=== PATIENT | male | born 1995 | race Caucasian/White ===

== ENCOUNTER → 2017-12-26 | Outpatient (REF) | payer OTHER ==
[2017-12-26 11:27] LABS: BASO # 0.1 10^3/uL (0.0-0.2); BASO % 0.8 % (0.0-1.0); EOS # 0.8 10^3/uL (0.0-0.50); EOS % 8.1 % (0.0-3.0); HEMOGLOBIN 16.8 g/dl (14.0-18.0); IMMATURE GRANULOCYTE % 0.3 % (0-3.0); LYMPH # 3.4 10^3/uL (1.5-6.5); LYMPH % 33.9 % (24.0-44.0); MEAN CORPUSCULAR HEMOGLOBIN 29.6 pg (27.0-33.0); MEAN CORPUSCULAR HGB CONC 33.6 g/dl (32.0-36.5); MONO # 0.9 10^3/uL (0.0-0.8); MONO % 8.5 % (0.0-5.0); NEUTROPHILS # 4.9 10^3/uL (1.8-7.7); NEUTROPHILS % 48.4 % (36.0-66.0); PLATELET COUNT, AUTOMATED 369 10^3/uL (150-450); RED BLOOD COUNT 5.68 10^6/uL (4.30-6.10); RED CELL DISTRIBUTION WIDTH 12.4 % (11.5-14.5)
[2017-12-26 11:46] LABS: ESTIMATED AVERAGE GLUCOSE 105 MG/DL (60-110); HEMOGLOBIN A1c 5.3 %
[2017-12-26 11:48] LABS: ALBUMIN 3.5 GM/DL (3.2-5.2); ALBUMIN/GLOBULIN RATIO 0.88 (1.00-1.93); ALKALINE PHOSPHATASE 80 U/L (45-117); ALT/SGPT 47 U/L (12-78); ANION GAP 7 MEQ/L (8-16); AST/SGOT 19 U/L (7-37); BILIRUBIN,TOTAL 0.5 MG/DL (0.2-1.0); BLOOD UREA NITROGEN 10 MG/DL (7-18); CARBON DIOXIDE LEVEL 28 MEQ/L (21-32); CHLORIDE LEVEL 106 MEQ/L (98-107); CHOLESTEROL LEVEL 163 MG/DL (<200); CREATININE FOR GFR 0.85 MG/DL (0.70-1.30); GLUCOSE, FASTING 81 MG/DL (70-100); HDL CHOLESTEROL 42 MG/DL (>40); NON-HDL-C 121 MG/DL; POTASSIUM SERUM 4.5 MEQ/L (3.5-5.1); SODIUM LEVEL 141 MEQ/L (136-145); TOTAL PROTEIN 7.5 GM/DL (6.4-8.2); TRIGLYCERIDES LEVEL 135 MG/DL (<150)
== END ==
LOC: M SFHCCLAY 08:25
DX: F90.0 Attention-deficit hyperactivity disorder, predominantly inattentive type (principal); E03.9 Hypothyroidism, unspecified; F41.8 Other specified anxiety disorders; L70.0 Acne vulgaris; Z13.1 Encounter for screening for diabetes mellitus; Z79.899 Other long term (current) drug therapy
CPT/HCPCS: 84443

== ENCOUNTER → 2017-12-27 | Outpatient (REF) | payer OTHER | LOC: M SFHCCLAY 15:34 | DX: J02.9 Acute pharyngitis, unspecified (principal) ==

== ENCOUNTER → 2018-08-28 | Outpatient (REF) | payer OTHER | LOC: M SFHCCLAY 10:35 | DX: F32.2 Major depressive disorder, single episode, severe without psychotic features (principal); E03.9 Hypothyroidism, unspecified; E66.01 Morbid (severe) obesity due to excess calories; F50.81 Binge eating disorder; F51.04 Psychophysiologic insomnia; R09.81 Nasal congestion ==

== ENCOUNTER → 2018-11-08 | Outpatient (REF) | payer OTHER ==
[2018-11-09 12:18] LABS: BASO # 0.1 10^3/uL (0.0-0.2); BASO % 0.8 % (0.0-1.0); EOS # 0.3 10^3/uL (0.0-0.50); EOS % 3.9 % (0.0-3.0); HEMATOCRIT 49.8 % (42.0-52.0); HEMOGLOBIN 16.5 g/dl (13.5-17.5); LYMPH # 2.6 10^3/uL (1.5-6.5); LYMPH % 29.7 % (24.0-44.0); MEAN CORPUSCULAR HEMOGLOBIN 29.5 pg (27.0-33.0); MEAN CORPUSCULAR HGB CONC 33.1 g/dl (32.0-36.5); MEAN CORPUSCULAR VOLUME 88.9 fl (80.0-96.0); MONO # 0.8 10^3/uL (0.0-0.8); MONO % 9.4 % (0.0-5.0); NEUTROPHILS # 4.9 10^3/uL (1.8-7.7); NEUTROPHILS % 55.9 % (36.0-66.0); PLATELET COUNT, AUTOMATED 360 10^3/uL (150-450); WHITE BLOOD COUNT 8.7 10^3/uL (4.0-10.0)
[2018-11-09 12:34] LABS: ALBUMIN 3.5 GM/DL (3.2-5.2); ALT/SGPT 43 U/L (12-78); BILIRUBIN,TOTAL 0.7 MG/DL (0.2-1.0); BLOOD UREA NITROGEN 11 MG/DL (7-18); CALCIUM LEVEL 9.1 MG/DL (8.5-10.1); CARBON DIOXIDE LEVEL 29 MEQ/L (21-32); CHLORIDE LEVEL 106 MEQ/L (98-107); CHOLESTEROL LEVEL 143 MG/DL (<200); CHOLESTEROL RISK RATIO 3.763 (<5); CREATININE FOR GFR 0.85 MG/DL (0.70-1.30); GLOMERULAR FILTRATION RATE > 60.0 (>60); GLUCOSE, FASTING 88 MG/DL (70-100); HDL CHOLESTEROL 38 MG/DL (>40); LDL CHOLESTEROL 83 MG/DL (<100); NON-HDL-C 105 MG/DL; POTASSIUM SERUM 4.1 MEQ/L (3.5-5.1); SODIUM LEVEL 141 MEQ/L (136-145); TOTAL PROTEIN 7.4 GM/DL (6.4-8.2); TRIGLYCERIDES LEVEL 108 MG/DL (<150)
[2018-11-09 12:59] LABS: HEMOGLOBIN A1c 5.2 %
== END ==
LOC: M SFHCCLAY 14:17
PROVIDERS: ATTEND Nurse Practitioner Family
DX: F32.2 Major depressive disorder, single episode, severe without psychotic features (principal); E03.9 Hypothyroidism, unspecified; E66.01 Morbid (severe) obesity due to excess calories; Z68.42 Body mass index [BMI] 45.0-49.9, adult; Z13.1 Encounter for screening for diabetes mellitus; L70.0 Acne vulgaris

== ENCOUNTER → 2019-09-13 | Outpatient (REF) | payer OTHER ==
[2019-09-13 17:23] LABS: ALBUMIN 3.3 GM/DL (3.2-5.2); ALT/SGPT 42 U/L (12-78); BILIRUBIN,TOTAL 0.6 MG/DL (0.2-1.0); BLOOD UREA NITROGEN 11 MG/DL (7-18); CALCIUM LEVEL 9.1 MG/DL (8.5-10.1); CARBON DIOXIDE LEVEL 29 MEQ/L (21-32); CHLORIDE LEVEL 105 MEQ/L (98-107); CHOLESTEROL LEVEL 149 MG/DL (<200); CHOLESTEROL RISK RATIO 3.465 (<5); CREATININE FOR GFR 0.79 MG/DL (0.70-1.30); FREE T4 1.01 NG/DL (0.76-1.46); GLOMERULAR FILTRATION RATE > 60.0 (>60); GLUCOSE, FASTING 80 MG/DL (70-100); HDL CHOLESTEROL 43 MG/DL (>40); LDL CHOLESTEROL 86 MG/DL (<100); NON-HDL-C 106 MG/DL; POTASSIUM SERUM 4.4 MEQ/L (3.5-5.1); SODIUM LEVEL 139 MEQ/L (136-145); TOTAL PROTEIN 7.1 GM/DL (6.4-8.2); TRIGLYCERIDES LEVEL 100 MG/DL (<150)
[2019-09-13 17:46] LABS: BASO # 0.1 10^3/uL (0.0-0.2); BASO % 0.8 % (0.0-1.0); EOS # 0.4 10^3/uL (0.0-0.5); EOS % 5.6 % (0.0-3.0); HEMATOCRIT 50.2 % (42.0-52.0); HEMOGLOBIN 15.9 g/dl (13.5-17.5); LYMPH # 2.7 10^3/uL (1.5-5.0); LYMPH % 33.8 % (24.0-44.0); MEAN CORPUSCULAR HEMOGLOBIN 29.3 pg (27.0-33.0); MEAN CORPUSCULAR HGB CONC 31.7 g/dl (32.0-36.5); MEAN CORPUSCULAR VOLUME 92.6 fl (80.0-96.0); MONO # 0.8 10^3/uL (0.0-0.8); MONO % 10.6 % (0.0-5.0); NEUTROPHILS # 3.9 10^3/uL (1.5-8.5); NEUTROPHILS % 48.8 % (36.0-66.0); PLATELET COUNT, AUTOMATED 360 10^3/uL (150-450); RED BLOOD COUNT 5.42 10^6/uL (4.30-6.10); WHITE BLOOD COUNT 7.9 10^3/uL (4.0-10.0)
== END ==
LOC: M SFHCCLAY 11:17
PROVIDERS: ATTEND Nurse Practitioner Family
DX: F32.2 Major depressive disorder, single episode, severe without psychotic features (principal); E03.9 Hypothyroidism, unspecified; E66.01 Morbid (severe) obesity due to excess calories

== ENCOUNTER 2019-11-12 11:33 | Emergency (ER) | payer BC, OTHER ==
[~2019-11-12] VITALS: Ht 175.3 cm; Wt 130.4 kg
[2019-11-12] MEDS ORDERED: CONC36TA4 PO (11:56)
[2019-11-12] MEDS ORDERED: AMIT10TA PO (11:56)
--- NOTE | 2019-11-12 12:59 | REP ---
INDICATION: Headache. Hallucinations. PROCEDURE: CT head without contrast COMPARISON STUDIES: No priors. FINDINGS: No acute bleed or acute large vessel territorial infarct. Ventricles, cisterns and sulci within normal limits. No mass effect or midline shift. No abnormal fluid collections. Paranasal sinuses and mastoid air cells are clear. CONCLUSION: No acute findings. Normal examination. Electronically Signed by Marcelo Ocasio MD 11/12/2019 12:50 P
[2019-11-12 13:22] LABS: HEMATOCRIT 50.6 % (42.0-52.0); HEMOGLOBIN 16.2 g/dl (13.5-17.5); MEAN CORPUSCULAR VOLUME 90.7 fl (80.0-96.0); PLATELET COUNT, AUTOMATED 338 10^3/uL (150-450); RED BLOOD COUNT 5.58 10^6/uL (4.30-6.10); WHITE BLOOD COUNT 9.5 10^3/uL (4.0-10.0)
[2019-11-12 13:53] LABS: ACETAMINOPHEN LEVEL < 2.0 UG/ML (10.0-30.0); ALBUMIN 3.4 GM/DL (3.2-5.2); ALT/SGPT 37 U/L (12-78); AMPHETAMINES LEVEL URINE NEGATIVE (NEGATIVE); BARBITURATES URINE NEGATIVE (NEGATIVE); BENZODIAZEPINES URINE NEGATIVE (NEGATIVE); BILIRUBIN,DIRECT 0.1 MG/DL (0.0-0.2); BILIRUBIN,TOTAL 0.3 MG/DL (0.2-1.0); BLOOD UREA NITROGEN 12 MG/DL (7-18); CALCIUM LEVEL 8.8 MG/DL (8.5-10.1); CANNABINOIDS URINE POSITIVE (NEGATIVE); CARBON DIOXIDE LEVEL 26 MEQ/L (21-32); CHLORIDE LEVEL 108 MEQ/L (98-107); COCAINE METABOLITE URINE NEGATIVE (NEGATIVE); CREATININE FOR GFR 0.83 MG/DL (0.70-1.30); ETHYL ALCOHOL (ETHANOL) < 0.003 % (0.000-0.010); GLOMERULAR FILTRATION RATE > 60.0 (>60); GLUCOSE, FASTING 94 MG/DL (70-100); METHADONE URINE NEGATIVE (NEGATIVE); OPIATES URINE NEGATIVE (NEGATIVE); PHENCYCLIDINE URINE NEGATIVE (NEGATIVE); POTASSIUM SERUM 4.3 MEQ/L (3.5-5.1); SALICYLATE LEVEL < 1.7 MG/DL (5.0-30.0); SODIUM LEVEL 140 MEQ/L (136-145); TOTAL PROTEIN 7.3 GM/DL (6.4-8.2)
[2019-11-12] MEDS ORDERED: ACETAMINOPHEN TAB 650MG DOSE (2X325MG) PO ONE (14:00)
[2019-11-12] MEDS ORDERED: diphenhydrAMINE 25 MG CAP As Ordered ONE (23:50)
[2019-11-13] MEDS ORDERED: diphenhydrAMINE 50 MG CAP PO ONE
[2019-11-13 09:31] VITALS: BP 147/84
--- NOTE | 2019-11-14 09:55 | ECGEPIP ---
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
== END 2019-11-13 09:34 ==
LOC: M ED 11:33
DX: F23 Brief psychotic disorder (principal); R00.0 Tachycardia, unspecified; R94.31 Abnormal electrocardiogram [ECG] [EKG]; F90.9 Attention-deficit hyperactivity disorder, unspecified type; E66.9 Obesity, unspecified; E07.9 Disorder of thyroid, unspecified; L70.9 Acne, unspecified; K31.1 Adult hypertrophic pyloric stenosis; F12.10 Cannabis abuse, uncomplicated; Z79.899 Other long term (current) drug therapy
CPT/HCPCS: 70450; 80048; 80076; 80307; 84443; 85027; 93005; 99285; G0480

== ENCOUNTER → 2021-05-25 | Outpatient (REF) | payer OTHER ==
[~2021-05-25] MED LIST: AMIT10TA7 PO; CONC36TA4 PO
[2021-05-25 16:25] LABS: BASO # 0.1 10^3/uL (0.0-0.2); BASO % 0.8 % (0.0-1.0); EOS # 0.7 10^3/uL (0.0-0.5); EOS % 7.6 % (0.0-3.0); HEMATOCRIT 51.3 % (42.0-52.0); HEMOGLOBIN 16.5 g/dl (13.5-17.5); LYMPH # 2.4 10^3/uL (1.5-5.0); LYMPH % 25.7 % (24.0-44.0); MEAN CORPUSCULAR HEMOGLOBIN 29.7 pg (27.0-33.0); MEAN CORPUSCULAR HGB CONC 32.2 g/dl (32.0-36.5); MEAN CORPUSCULAR VOLUME 92.4 fl (80.0-96.0); MONO # 0.6 10^3/uL (0.0-0.8); MONO % 6.7 % (2.0-8.0); NEUTROPHILS # 5.4 10^3/uL (1.5-8.5); NEUTROPHILS % 58.7 % (36.0-66.0); PLATELET COUNT, AUTOMATED 378 10^3/uL (150-450); RED BLOOD COUNT 5.55 10^6/uL (4.30-6.10); WHITE BLOOD COUNT 9.2 10^3/uL (4.0-10.0)
[2021-05-25 16:52] LABS: ALBUMIN 3.5 GM/DL (3.2-5.2); ALT/SGPT 41 U/L (12-78); BILIRUBIN,TOTAL 0.5 MG/DL (0.2-1.0); BLOOD UREA NITROGEN 11 MG/DL (7-18); CALCIUM LEVEL 9.6 MG/DL (8.5-10.1); CARBON DIOXIDE LEVEL 32 MEQ/L (21-32); CHLORIDE LEVEL 106 MEQ/L (98-107); CHOLESTEROL LEVEL 199 MG/DL (<200); CREATININE FOR GFR 0.85 MG/DL (0.70-1.30); GLOMERULAR FILTRATION RATE > 60.0 (>60); GLUCOSE, FASTING 94 MG/DL (70-100); HDL CHOLESTEROL 50 MG/DL (>40); LDL CHOLESTEROL 103 MG/DL (<100); NON-HDL-C 149 MG/DL; POTASSIUM SERUM 4.9 MEQ/L (3.5-5.1); SODIUM LEVEL 141 MEQ/L (136-145); TOTAL PROTEIN 7.5 GM/DL (6.4-8.2); TRIGLYCERIDES LEVEL 230 MG/DL (<150)
== END ==
LOC: M SFHCCLAY 11:44
PROVIDERS: ATTEND Nurse Practitioner Family
DX: E03.9 Hypothyroidism, unspecified (principal); F90.0 Attention-deficit hyperactivity disorder, predominantly inattentive type; F32.2 Major depressive disorder, single episode, severe without psychotic features; F51.04 Psychophysiologic insomnia; E66.01 Morbid (severe) obesity due to excess calories; Z68.42 Body mass index [BMI] 45.0-49.9, adult
CPT/HCPCS: 80053; 80061; 84439; 84443; 85025; G0480

== ENCOUNTER 2022-01-01 23:35 | Inpatient (IN) | payer BC, OTHER ==
[~2022-01-01] VITALS: Ht 175.3 cm; Wt 136.4 kg
[2022-01-02] MEDS ORDERED: LEVO25TA5 PO (00:12)
[2022-01-02 00:45] LABS: HEMATOCRIT 48.6 % (42.0-52.0); HEMOGLOBIN 16.1 g/dl (13.5-17.5); MEAN CORPUSCULAR HEMOGLOBIN 29.3 pg (27.0-33.0); MEAN CORPUSCULAR HGB CONC 33.1 g/dl (32.0-36.5); MEAN CORPUSCULAR VOLUME 88.4 fl (80.0-96.0); PLATELET COUNT, AUTOMATED 461 10^3/uL (150-450); WHITE BLOOD COUNT 10.8 10^3/uL (4.0-10.0)
[2022-01-02 01:22] LABS: ACETAMINOPHEN LEVEL < 2.0 UG/ML (10.0-30.0); ALBUMIN 3.3 GM/DL (3.2-5.2); ALT/SGPT 47 U/L (12-78); BILIRUBIN,DIRECT < 0.1 MG/DL (0.0-0.2); BILIRUBIN,TOTAL 0.2 MG/DL (0.2-1.0); BLOOD UREA NITROGEN 10 MG/DL (7-18); CALCIUM LEVEL 8.3 MG/DL (8.5-10.1); CARBON DIOXIDE LEVEL 23 MEQ/L (21-32); CHLORIDE LEVEL 109 MEQ/L (98-107); CREATININE FOR GFR 0.82 MG/DL (0.70-1.30); GLOMERULAR FILTRATION RATE > 60.0 (>60); GLUCOSE, FASTING 92 MG/DL (70-100); POTASSIUM SERUM 4.1 MEQ/L (3.5-5.1); RSV AMPLIFICATION NEGATIVE (NEGATIVE); SALICYLATE LEVEL < 1.7 MG/DL (5.0-30.0); SODIUM LEVEL 141 MEQ/L (136-145); TOTAL PROTEIN 7.2 GM/DL (6.4-8.2)
[2022-01-02 01:23] LABS: AMPHETAMINES LEVEL URINE NEGATIVE (NEGATIVE); BARBITURATES URINE NEGATIVE (NEGATIVE); BENZODIAZEPINES URINE NEGATIVE (NEGATIVE); CANNABINOIDS URINE POSITIVE (NEGATIVE); COCAINE METABOLITE URINE NEGATIVE (NEGATIVE); METHADONE URINE NEGATIVE (NEGATIVE); OPIATES URINE NEGATIVE (NEGATIVE); PHENCYCLIDINE URINE NEGATIVE (NEGATIVE)
[2022-01-02] MEDS ORDERED: LEVO50TA5 PO (04:17)
[2022-01-02] MEDS ORDERED: HOME MED LIST COMPLETE! XX SCH (04:20)
[2022-01-02] MEDS: THIAMINE 100 MG TAB PO SCH ×2 (09:00→20:57)
[2022-01-02] MEDS ORDERED: ONDANSETRON 4 MG ORAL DISINTEGRATING TAB PO ONE (09:20)
[2022-01-02] MEDS ORDERED: LORazepam 2 MG TAB PO PRN (12:25)
[2022-01-02] MEDS ORDERED: OLANZapine ORAL DISINTEGRATING TAB 5MG PO PRN (12:25)
[2022-01-02] MEDS: MULTIVITAMINS/MINERALS THERAP 1 TAB PO SCH (16:58)
[2022-01-02] MEDS: FOLIC ACID 1 MG TAB PO SCH (16:58)
[2022-01-02] MEDS: risperiDONE 1 MG TAB PO SCH (20:57)
[2022-01-02] MEDS: AMITRIPTYLINE 10MG TABLET PO SCH (20:57)
[2022-01-02] MEDS: traZODone 50 MG TAB PO PRN (20:57)
[2022-01-03 06:00] VITALS: BP 137/75
[2022-01-03 06:09] VITALS: BP 137/75
[2022-01-03] MEDS: LEVOTHYROXINE 50MCG TABLET (0.05MG) PO SCH (06:28)
[2022-01-03] MEDS: THIAMINE 100 MG TAB PO SCH ×2 (09:00→21:53)
[2022-01-03] MEDS: risperiDONE 1 MG TAB PO SCH ×2 (09:00→21:53)
[2022-01-03] MEDS ORDERED: INFLUENZA QUADRIVALENT PF VACCINE 0.5ML SYRINGE IM ONE (09:00)
[2022-01-03] MEDS: FOLIC ACID 1 MG TAB PO SCH (09:51)
[2022-01-03] MEDS: MULTIVITAMINS/MINERALS THERAP 1 TAB PO SCH (09:51)
[2022-01-03] MEDS: METHYLPHENIDATE ER 18 MG TABLET (CONCERTA) PO SCH (09:51)
[2022-01-03 14:00] VITALS: BP_SYST 137; BP_SYST 140; BP_DIAS 75; BP_DIAS 98
[2022-01-03 16:46] VITALS: BP 140/98
[2022-01-03] MEDS: AMITRIPTYLINE 10MG TABLET PO SCH (21:52)
[2022-01-03] MEDS: traZODone 50 MG TAB PO PRN (21:53)
[2022-01-04] MEDS: LEVOTHYROXINE 50MCG TABLET (0.05MG) PO SCH (06:15)
[2022-01-04 06:55] VITALS: BP 186/108
[2022-01-04 08:00] VITALS: BP 128/80
[2022-01-04] MEDS: METHYLPHENIDATE ER 18 MG TABLET (CONCERTA) PO SCH (08:57)
[2022-01-04] MEDS: THIAMINE 100 MG TAB PO SCH ×2 (09:00→21:03)
[2022-01-04] MEDS: MULTIVITAMINS/MINERALS THERAP 1 TAB PO SCH (09:00)
[2022-01-04] MEDS: FOLIC ACID 1 MG TAB PO SCH (09:00)
[2022-01-04] MEDS: risperiDONE 1 MG TAB PO SCH (09:50)
[2022-01-04] MEDS: risperiDONE 2 MG TAB PO SCH (21:03)
[2022-01-04] MEDS: traZODone 50 MG TAB PO PRN (21:03)
[2022-01-04] MEDS: AMITRIPTYLINE 10MG TABLET PO SCH (21:03)
[2022-01-05] VITALS (7 sets, daily range): BP systolic 148–177; BP diastolic 86–118
[2022-01-05] MEDS: LEVOTHYROXINE 50MCG TABLET (0.05MG) PO SCH (05:20)
[2022-01-05] MEDS: MULTIVITAMINS/MINERALS THERAP 1 TAB PO SCH (09:00)
[2022-01-05] MEDS: FOLIC ACID 1 MG TAB PO SCH (09:00)
[2022-01-05] MEDS: risperiDONE 2 MG TAB PO SCH ×2 (09:52→22:36)
[2022-01-05] MEDS: METHYLPHENIDATE ER 18 MG TABLET (CONCERTA) PO SCH (09:53)
[2022-01-05] MEDS: ACETAMINOPHEN TAB 650MG DOSE (2X325MG) PO PRN (11:07)
[2022-01-05] MEDS: hydrOXYzine 50 MG TAB PO PRN ×2 (14:58→22:36)
[2022-01-05] MEDS: AMITRIPTYLINE 10MG TABLET PO SCH (22:36)
[2022-01-06] MEDS: LEVOTHYROXINE 50MCG TABLET (0.05MG) PO SCH (06:05)
[2022-01-06 06:59] VITALS: BP 172/99
[2022-01-06] MEDS ORDERED: risperiDONE LONG-ACTING 37.5 MG/2 ML INJ (J2794 PER 0.5MG) IM SCH (09:00)
[2022-01-06] MEDS: risperiDONE 2 MG TAB PO SCH ×3 (11:26→22:25)
[2022-01-06] MEDS: METHYLPHENIDATE ER 18 MG TABLET (CONCERTA) PO SCH (11:27)
[2022-01-06] MEDS: traZODone 50 MG TAB PO PRN ×2 (20:36→22:25)
[2022-01-06] MEDS: AMITRIPTYLINE 10MG TABLET PO SCH ×2 (20:36→22:25)
[2022-01-07] MEDS: LEVOTHYROXINE 50MCG TABLET (0.05MG) PO SCH (05:58)
[2022-01-07 06:15] VITALS: BP 153/82
[2022-01-07] MEDS: risperiDONE 2 MG TAB PO SCH ×2 (09:24→20:06)
[2022-01-07] MEDS: METHYLPHENIDATE ER 18 MG TABLET (CONCERTA) PO SCH (09:24)
[2022-01-07] MEDS: AMITRIPTYLINE 10MG TABLET PO SCH (20:06)
[2022-01-07] MEDS: ACETAMINOPHEN TAB 650MG DOSE (2X325MG) PO PRN (20:08)
[2022-01-07] MEDS: traZODone 50 MG TAB PO PRN (22:08)
[2022-01-08] MEDS: LEVOTHYROXINE 50MCG TABLET (0.05MG) PO SCH (05:48)
[2022-01-08 06:02] VITALS: BP 145/73
[2022-01-08] MEDS: risperiDONE 2 MG TAB PO SCH ×2 (09:31→22:30)
[2022-01-08] MEDS: METHYLPHENIDATE ER 18 MG TABLET (CONCERTA) PO SCH (09:31)
[2022-01-08] MEDS: traZODone 50 MG TAB PO PRN (22:29)
[2022-01-08] MEDS: AMITRIPTYLINE 10MG TABLET PO SCH (22:30)
[2022-01-09] MEDS: LEVOTHYROXINE 50MCG TABLET (0.05MG) PO SCH (05:39)
[2022-01-09 06:59] VITALS: BP 132/91
[2022-01-09] MEDS: METHYLPHENIDATE ER 18 MG TABLET (CONCERTA) PO SCH (09:58)
[2022-01-09] MEDS: risperiDONE 2 MG TAB PO SCH ×2 (09:58→21:54)
[2022-01-09] MEDS: traZODone 50 MG TAB PO PRN (21:53)
[2022-01-09] MEDS: AMITRIPTYLINE 10MG TABLET PO SCH (21:54)
[2022-01-10] MEDS: LEVOTHYROXINE 50MCG TABLET (0.05MG) PO SCH (05:36)
[2022-01-10 06:35] VITALS: BP 150/84
[2022-01-10] MEDS: risperiDONE 2 MG TAB PO SCH ×2 (08:01→21:24)
[2022-01-10] MEDS: METHYLPHENIDATE ER 18 MG TABLET (CONCERTA) PO SCH (08:02)
[2022-01-10] MEDS: AMITRIPTYLINE 10MG TABLET PO SCH (21:23)
[2022-01-10] MEDS: traZODone 50 MG TAB PO PRN (21:24)
[2022-01-11] MEDS: LEVOTHYROXINE 50MCG TABLET (0.05MG) PO SCH (05:52)
[2022-01-11 06:28] VITALS: BP 140/79
[2022-01-11] MEDS: risperiDONE 2 MG TAB PO SCH ×2 (09:55→20:58)
[2022-01-11] MEDS: METHYLPHENIDATE ER 18 MG TABLET (CONCERTA) PO SCH (09:56)
[2022-01-11] MEDS ORDERED: RISP37INJ IM (13:31)
[2022-01-11] MEDS ORDERED: RISP-9 PO (13:31)
[2022-01-11 16:17] VITALS: BP 140/86
[2022-01-11] MEDS: AMITRIPTYLINE 10MG TABLET PO SCH (20:58)
[2022-01-11] MEDS: traZODone 50 MG TAB PO PRN (20:58)
[2022-01-12] MEDS: LEVOTHYROXINE 50MCG TABLET (0.05MG) PO SCH (06:02)
[2022-01-12 06:23] VITALS: BP 146/105
[2022-01-12] MEDS: METHYLPHENIDATE ER 18 MG TABLET (CONCERTA) PO SCH (09:18)
[2022-01-12] MEDS: risperiDONE 2 MG TAB PO SCH (09:18)
[2022-01-12 10:57] VITALS: BP 149/81
== END 2022-01-12 14:00 | disposition home or self-care (01) | DRG 760 ==
LOC: M ED 23:35 → M ED INP 01-02 12:22 → M PSY 01-02 14:25
PROVIDERS: ADMIT Student in an Organized Health Care Education/Training Program; ATTEND Student in an Organized Health Care Education/Training Program
DX: F50.9 Eating disorder, unspecified (principal); F90.9 Attention-deficit hyperactivity disorder, unspecified type; Z79.899 Other long term (current) drug therapy; E66.01 Morbid (severe) obesity due to excess calories; E03.9 Hypothyroidism, unspecified; U07.1 COVID-19

== ENCOUNTER 2023-04-27 12:13 | Emergency (ER) | payer BC, MEDICAID, OTHER, SELFPAY ==
[~2023-04-27] VITALS: Ht 177.8 cm; Wt 130.5 kg
[~2023-04-27 12:13] MED LIST changes: +LEVO25TA5 PO; +LEVO50TA5 PO; +RISP-9 PO; +RISP37INJ IM
[2023-04-27] MEDS ORDERED: [UNRECOGNIZED DRUG - CODE] (12:25)
[2023-04-27] MEDS ORDERED: ZOLP10TA2 (12:25)
[2023-04-27] MEDS ORDERED: KETOROLAC 30 MG/ML 1ML VIAL IM ONE (13:30)
[2023-04-27] MEDS ORDERED: NAPR-837 PO (13:33)
[2023-04-27 13:50] VITALS: BP 139/91; TEMP 97.9; O2SAT 100
== END 2023-04-27 14:00 | disposition home or self-care (01) ==
LOC: M ED 12:13
DX: S82.144A Nondisplaced bicondylar fracture of right tibia, initial encounter for closed fracture (principal); X58.XXXA Exposure to other specified factors, initial encounter; Y93.89 Activity, other specified; F90.9 Attention-deficit hyperactivity disorder, unspecified type; E66.9 Obesity, unspecified; E03.9 Hypothyroidism, unspecified; Z79.899 Other long term (current) drug therapy
CPT/HCPCS: 73564; 96372; 99284; J1885

== ENCOUNTER → 2023-04-28 | Outpatient (CLI) | payer OTHER ==
[~2023-04-28] MED LIST changes: +NAPR-837 PO; +ZOLP10TA2; +[UNRECOGNIZED DRUG - CODE]
== END ==
LOC: M RAD 12:05
PROVIDERS: ATTEND Orthopaedic Surgery Hand Surgery
DX: S82.101A Unspecified fracture of upper end of right tibia, initial encounter for closed fracture (principal); M25.061 Hemarthrosis, right knee; M85.461 Solitary bone cyst, right tibia and fibula; X58.XXXA Exposure to other specified factors, initial encounter; Y92.89 Other specified places as the place of occurrence of the external cause; Y99.8 Other external cause status; Y93.89 Activity, other specified

== ENCOUNTER 2023-05-16 09:04 | Emergency (ER) | payer OTHER ==
[~2023-05-16] VITALS: Ht 177.8 cm; Wt 130.0 kg
[2023-05-16 09:06] VITALS: BP 131/76; TEMP 98.5; O2SAT 95
== END 2023-05-16 10:16 | disposition home or self-care (01) ==
LOC: M ED 09:04
DX: S09.22XA Traumatic rupture of left ear drum, initial encounter (principal); H61.22 Impacted cerumen, left ear; X58.XXXA Exposure to other specified factors, initial encounter; Z79.899 Other long term (current) drug therapy; F17.290 Nicotine dependence, other tobacco product, uncomplicated

== ENCOUNTER → 2023-05-31 | Outpatient (REF) | payer OTHER ==
[2023-05-31 18:18] LABS: ALBUMIN 3.4 G/DL (3.2-5.2); ALKALINE PHOSPHATASE 88 U/L (46-116); ALT/SGPT 26 U/L (7.0-40); AST/SGOT 10 U/L (<34); BILIRUBIN,TOTAL 0.3 MG/DL (0.3-1.2); BLOOD UREA NITROGEN 10 MG/DL (9-23); CALCIUM LEVEL 9.3 MG/DL (8.5-10.1); CARBON DIOXIDE LEVEL 28 MMOL/L (20-31); CHLORIDE LEVEL 106 MMOL/L (98-107); CHOLESTEROL LEVEL 122 MG/DL (<200); CHOLESTEROL RISK RATIO 3.23 (<5); CREATININE FOR GFR 0.77 MG/DL (0.70-1.30); GLOMERULAR FILTRATION RATE > 60.0 (>60); GLUCOSE, FASTING 94 MG/DL (60-100); HDL CHOLESTEROL 37.7 MG/DL (>40); LDL CHOLESTEROL 55.1 MG/DL (<100); NON-HDL-C 84.3 MG/DL; POTASSIUM SERUM 4.4 MMOL/L (3.5-5.1); SODIUM LEVEL 143 MMOL/L (136-145); TOTAL PROTEIN 6.9 G/DL (5.7-8.2); TRIGLYCERIDES LEVEL 146 MG/DL (<150)
[2023-05-31 18:22] LABS: FREE T4 1.08 NG/DL (0.89-1.76); THYROID STIMULATING HORMONE 1.939 uIU/ML (0.55-4.78)
== END ==
LOC: M SFHCCLAY 14:11
PROVIDERS: ATTEND Nurse Practitioner Family
DX: E03.9 Hypothyroidism, unspecified (principal)

== ENCOUNTER → 2023-06-17 | Outpatient (CLI) | payer OTHER, MEDICAID | LOC: M SOG 08:08 | PROVIDERS: ATTEND Physician Assistant | DX: S82.141A Displaced bicondylar fracture of right tibia, initial encounter for closed fracture (principal); X58.XXXA Exposure to other specified factors, initial encounter; Y92.9 Unspecified place or not applicable; Y93.9 Activity, unspecified; Y99.9 Unspecified external cause status ==

== ENCOUNTER 2023-11-23 18:40 | Emergency (ER) | payer MEDICAID, OTHER ==
[~2023-11-23] VITALS: Ht 177.8 cm; Wt 130.6 kg
[2023-11-23 18:41] VITALS: BP 161/78; TEMP 98.2; O2SAT 98
[2023-11-23 20:07] LABS: RSV AMPLIFICATION NEGATIVE (NEGATIVE)
[2023-11-23] MEDS ORDERED: BENZ200C70 PO (20:35)
== END 2023-11-23 21:09 | disposition home or self-care (01) ==
LOC: M ED 18:40
DX: J06.9 Acute upper respiratory infection, unspecified (principal); F90.9 Attention-deficit hyperactivity disorder, unspecified type; E03.9 Hypothyroidism, unspecified; F17.200 Nicotine dependence, unspecified, uncomplicated; Z79.1 Long term (current) use of non-steroidal anti-inflammatories (NSAID); Z79.899 Other long term (current) drug therapy

== ENCOUNTER → 2024-01-24 | Outpatient (CLI) | payer OTHER ==
[~2024-01-24] MED LIST changes: +BENZ200C70 PO; +RISP-106 PO; -RISP-9 PO
[2024-01-24 14:25] LABS: BASO # 0.1 10^3/uL (0.0-0.2); BASO % 0.9 % (0.0-1.0); EOS # 0.5 10^3/uL (0.0-0.5); HEMATOCRIT 49.2 % (42.0-52.0); HEMOGLOBIN 15.8 g/dl (13.5-17.5); LYMPH # 3.1 10^3/uL (1.5-5.0); LYMPH % 34.6 % (24.0-44.0); MEAN CORPUSCULAR HEMOGLOBIN 29.8 pg (27.0-33.0); MEAN CORPUSCULAR HGB CONC 32.1 g/dl (32.0-36.5); MEAN CORPUSCULAR VOLUME 92.8 fl (80.0-96.0); MONO # 0.8 10^3/uL (0.0-0.8); MONO % 8.7 % (2.0-8.0); NEUTROPHILS # 4.5 10^3/uL (1.5-8.5); NEUTROPHILS % 50.6 % (36.0-66.0); PLATELET COUNT, AUTOMATED 380 10^3/uL (150-450)
[2024-01-24 14:41] LABS: HEMOGLOBIN A1c 4.9 % (4.0-6.0)
[2024-01-24 14:55] LABS: ALBUMIN 3.5 G/DL (3.2-5.2); ALKALINE PHOSPHATASE 92 U/L (46-116); ALT/SGPT 21 U/L (7.0-40); AST/SGOT 12 U/L (<34); BILIRUBIN,TOTAL 0.8 MG/DL (0.3-1.2); BLOOD UREA NITROGEN 11 MG/DL (9-23); CALCIUM LEVEL 9.5 MG/DL (8.5-10.1); CARBON DIOXIDE LEVEL 30 MMOL/L (20-31); CHLORIDE LEVEL 109 MMOL/L (98-107); CHOLESTEROL LEVEL 159 MG/DL (<200); GLOMERULAR FILTRATION RATE > 60.0 (>60); GLUCOSE, FASTING 78 MG/DL (60-100); HDL CHOLESTEROL 41.8 MG/DL (>40); LDL CHOLESTEROL 98.2 MG/DL (<100); NON-HDL-C 117.2 MG/DL; POTASSIUM SERUM 4.9 MMOL/L (3.5-5.1); SODIUM LEVEL 137 MMOL/L (136-145); TRIGLYCERIDES LEVEL 95 MG/DL (<150)
== END ==
LOC: M PLALAB 10:24
PROVIDERS: ATTEND Psychiatry & Neurology Psychiatry
DX: F20.9 Schizophrenia, unspecified (principal); F12.20 Cannabis dependence, uncomplicated; F10.20 Alcohol dependence, uncomplicated

== ENCOUNTER → 2024-03-12 | Outpatient (REF) | payer MEDICAID ==
[2024-03-12 18:32] LABS: BASO # 0.1 10^3/uL (0.0-0.2); BASO % 0.8 % (0.0-1.0); EOS # 0.9 10^3/uL (0.0-0.5); EOS % 8.5 % (0.0-3.0); HEMATOCRIT 49.3 % (42.0-52.0); LYMPH # 3.1 10^3/uL (1.5-5.0); LYMPH % 27.8 % (24.0-44.0); MEAN CORPUSCULAR HEMOGLOBIN 29.4 pg (27.0-33.0); MEAN CORPUSCULAR HGB CONC 32.5 g/dl (32.0-36.5); MEAN CORPUSCULAR VOLUME 90.6 fl (80.0-96.0); MONO # 0.9 10^3/uL (0.0-0.8); MONO % 8.4 % (2.0-8.0); PLATELET COUNT, AUTOMATED 425 10^3/uL (150-450); RED BLOOD COUNT 5.44 10^6/uL (4.30-6.10); WHITE BLOOD COUNT 11.1 10^3/uL (4.0-10.0)
[2024-03-12 18:54] LABS: ALBUMIN 3.1 G/DL (3.2-5.2); ALKALINE PHOSPHATASE 86 U/L (46-116); ALT/SGPT 27 U/L (7.0-40); AST/SGOT 14 U/L (<34); BILIRUBIN,TOTAL 0.3 MG/DL (0.3-1.2); BLOOD UREA NITROGEN 13 MG/DL (9-23); CALCIUM LEVEL 9.2 MG/DL (8.5-10.1); CARBON DIOXIDE LEVEL 30 MMOL/L (20-31); CHLORIDE LEVEL 103 MMOL/L (98-107); CHOLESTEROL LEVEL 168 MG/DL (<200); CHOLESTEROL RISK RATIO 3.45 (<5); CREATININE FOR GFR 0.75 MG/DL (0.70-1.30); FREE T4 1.23 NG/DL (0.89-1.76); GLOMERULAR FILTRATION RATE > 60.0 (>60); GLUCOSE, FASTING 79 MG/DL (60-100); HDL CHOLESTEROL 48.6 MG/DL (>40); LDL CHOLESTEROL 80.6 MG/DL (<100); NON-HDL-C 119.4 MG/DL; POTASSIUM SERUM 4.4 MMOL/L (3.5-5.1); SODIUM LEVEL 139 MMOL/L (136-145); TOTAL PROTEIN 6.6 G/DL (5.7-8.2); TRIGLYCERIDES LEVEL 194 MG/DL (<150)
[2024-03-12 18:55] LABS: THYROID STIMULATING HORMONE 0.861 uIU/ML (0.55-4.78)
== END ==
LOC: M SFHCCLAY 13:17
PROVIDERS: ATTEND Nurse Practitioner Family
DX: E03.9 Hypothyroidism, unspecified (principal); F32.2 Major depressive disorder, single episode, severe without psychotic features; E66.01 Morbid (severe) obesity due to excess calories; Z68.42 Body mass index [BMI] 45.0-49.9, adult; Z13.1 Encounter for screening for diabetes mellitus; L70.0 Acne vulgaris

== ENCOUNTER → 2024-12-12 | Outpatient (REF) | payer MEDICAID, OTHER ==
[2024-12-12 17:56] LABS: ALBUMIN 3.1 G/DL (3.2-5.2); ALKALINE PHOSPHATASE 81 U/L (40-129); ALT/SGPT 29 U/L (7.0-40); AST/SGOT 12 U/L (<34); BILIRUBIN,TOTAL 0.3 MG/DL (0.3-1.2); BLOOD UREA NITROGEN 7 MG/DL (9-23); CALCIUM LEVEL 8.8 MG/DL (8.5-10.1); CARBON DIOXIDE LEVEL 28 MMOL/L (20-31); CHLORIDE LEVEL 103 MMOL/L (98-107); FREE T4 1.15 NG/DL (0.89-1.76); GLOMERULAR FILTRATION RATE > 60.0 (>60); GLUCOSE, FASTING 79 MG/DL (60-100); HEMOGLOBIN A1c 5.1 % (4.0-6.0); POTASSIUM SERUM 4.1 MMOL/L (3.5-5.1); SODIUM LEVEL 139 MMOL/L (136-145)
[2024-12-12 17:59] LABS: THYROID STIMULATING HORMONE 0.887 uIU/ML (0.55-4.78)
== END ==
LOC: M SFHCCLAY 14:54
PROVIDERS: ATTEND Nurse Practitioner Family
DX: Z13.1 Encounter for screening for diabetes mellitus (principal); E03.9 Hypothyroidism, unspecified

== ENCOUNTER → 2025-07-01 | Outpatient (CLI) | payer MEDICAID, OTHER ==
[~2025-07-01] MED LIST changes: +AMIT10TA11 PO; -AMIT10TA7 PO
[2025-07-01 09:58] LABS: BASO # 0.1 10^3/uL (0.0-0.2); BASO % 0.6 % (0.0-1.0); EOS # 0.7 10^3/uL (0.0-0.5); EOS % 6.5 % (0.0-3.0); LYMPH # 2.4 10^3/uL (1.5-5.0); LYMPH % 23.5 % (24.0-44.0); MONO # 0.7 10^3/uL (0.0-0.8); MONO % 7.0 % (2.0-8.0); NEUTROPHILS # 6.4 10^3/uL (1.5-8.5); NEUTROPHILS % 62.0 % (36.0-66.0); PLATELET COUNT, AUTOMATED 370 10^3/uL (150-450)
[2025-07-01 10:27] LABS: ALT/SGPT 43 U/L (7.0-40); AST/SGOT 26 U/L (<34); CALCIUM LEVEL 9.1 MG/DL (8.5-10.1); CARBON DIOXIDE LEVEL 27 MMOL/L (20-31); CHLORIDE LEVEL 107 MMOL/L (98-107); CHOLESTEROL LEVEL 137 MG/DL (<200); CHOLESTEROL RISK RATIO 3.74 (<5); CREATININE FOR GFR 0.88 MG/DL (0.70-1.30); GLOMERULAR FILTRATION RATE > 90.0 (>60); LDL CHOLESTEROL 81.2 MG/DL (<100); NON-HDL-C 100.4 MG/DL; POTASSIUM SERUM 4.4 MMOL/L (3.5-5.1); SODIUM LEVEL 143 MMOL/L (136-145); TRIGLYCERIDES LEVEL 96 MG/DL (<150)
[2025-07-01 10:33] LABS: FREE T4 1.41 NG/DL (0.89-1.76)
[2025-07-01 10:33] LABS: ESTIMATED AVERAGE GLUCOSE 108.0 MG/DL (60-110)
== END ==
LOC: M LAB 09:08
PROVIDERS: ATTEND Nurse Practitioner Family
DX: E66.01 Morbid (severe) obesity due to excess calories (principal); Z68.42 Body mass index [BMI] 45.0-49.9, adult; E03.9 Hypothyroidism, unspecified; F32.2 Major depressive disorder, single episode, severe without psychotic features; Z13.1 Encounter for screening for diabetes mellitus